=== PATIENT | female | born 2000 | race Two or more races ===

== ENCOUNTER 2023-04-24 10:20 | Emergency (ER) | payer OTHER ==
[~2023-04-24] VITALS: Ht 152.4 cm; Wt 61.0 kg
[2023-04-24 12:23] VITALS: BP 119/69; PULSE 116; RESP 18; TEMP 98.9; O2SAT 95
[2023-04-24] MEDS ORDERED: CLINDAMYCIN 600MG IV 50 ML IV ONE (13:30)
[2023-04-24] MEDS ORDERED: LIDOCAINE 1% HCL (LOCAL ANESTH.) INJ 20ML MDV ID ONE (14:00)
[2023-04-24] MEDS ORDERED: HYDROcodone-ACET 5/325MG TAB PO ONE (15:00)
[2023-04-24] MEDS ORDERED: IBUP1TAB5 PO (15:31)
[2023-04-24] MEDS ORDERED: CEPH500C PO (15:31)
[2023-04-24] MEDS ORDERED: CIPR-173 PO (15:31)
== END 2023-04-24 15:43 | disposition home or self-care (01) ==
LOC: ER 10:20
DX: L02.31 Cutaneous abscess of buttock (principal); Z79.899 Other long term (current) drug therapy
CPT/HCPCS: 10060; 96365; 99284; J2001; J3490; 10061

== ENCOUNTER 2023-04-26 10:50 | Emergency (ER) | payer MEDICAID, OTHER ==
[~2023-04-26] VITALS: Ht 152.4 cm; Wt 61.8 kg
[~2023-04-26 10:50] MED LIST: CEPH500C PO; CIPR-173 PO; IBUP1TAB5 PO
[2023-04-26 14:40] VITALS: BP 109/65; PULSE 98; RESP 16; TEMP 98.2; O2SAT 99
== END 2023-04-26 15:39 | disposition home or self-care (01) ==
LOC: ER 10:50
DX: L02.31 Cutaneous abscess of buttock (principal); Z79.1 Long term (current) use of non-steroidal anti-inflammatories (NSAID); Z79.2 Long term (current) use of antibiotics; Z79.899 Other long term (current) drug therapy